=== PATIENT | female | born 1975 | race African-American/Black ===

== ENCOUNTER 2024-09-07 08:42 | Emergency (ER) | payer SELFPAY ==
[~2024-09-07] VITALS: Ht 162.6 cm; Wt 97.0 kg
[2024-09-07 08:45] VITALS: O2SAT 100
[2024-09-07 08:49] VITALS: BP 169/105; PULSE 97; RESP 18; TEMP 36.9; O2SAT 100
[2024-09-07 09:04] LABS: CLARITY URINE CLEAR (CLEAR); COLOR URINE YELLOW (YELLOW); GLUCOSE URINE NEGATIVE (NEGATIVE); KETONES URINE NEGATIVE (NEGATIVE); LEUKOCYTE ESTERASE URINE 1+ (NEGATIVE); NITRITE URINE NEGATIVE (NEGATIVE); OCCULT BLOOD URINE 2+ (NEGATIVE); PH URINE 6.0 (4.5-8.0); PROTEIN URINE TRACE (NEGATIVE); SPECIFIC GRAVITY URINE 1.023 (1.005-1.030); UROBILINOGEN URINE 1.0 E.U./dL (0.2-1.0)
[2024-09-07 09:14] LABS: BASOPHILS % 0.7 % (0.0-2.0); EOSINOPHILS % 2.6 % (0.0-5.0); HEMATOCRIT. 36.9 % (36.0-48.0); HEMOGLOBIN. 12.1 g/dL (12.0-16.0); LYMPHOCYTES % 22.1 % (20.0-50.0); MEAN PLATELET VOLUME 7.8 fl (7.4-10.4); MONOCYTES % 6.3 % (2.0-8.0); NEUTROPHILS % 68.3 % (40.0-76.0); PLATELET 441 x1000/uL (130-400); RED BLOOD CELL COUNT 4.54 mill/uL (4.2-5.4); RED CELL DISTRIBUTION WIDTH 16.2 % (11.6-14.6)
[2024-09-07 09:19] LABS: BACTERIA URINE 1+; MUCUS URINE TRACE /lpf (< = 2+); SQUAMOUS EPITHELIAL CELL URINE 3+ /lpf (RARE/1+)
[2024-09-07 09:20] LABS: RBC URINE 0-2 /hpf (0-2)
[2024-09-07 09:28] LABS: CREATININE 1.1 mg/dL (0.6-1.0)
[2024-09-07 09:29] LABS: UREA NITROGEN BLOOD 16 mg/dL (9-23)
[2024-09-07 09:37] LABS: HCG SCREEN NEGATIVE
== END 2024-09-07 10:54 | disposition home or self-care (01) ==
LOC: ER 09:01
DX: O26.899 Other specified pregnancy related conditions, unspecified trimester (principal); O10.912 Unspecified pre-existing hypertension complicating pregnancy, second trimester; Z98.890 Other specified postprocedural states; Z3A.00 Weeks of gestation of pregnancy not specified
CPT/HCPCS: 36415; 80048; 81003; 81025; 84703; 85025; 99283